=== PATIENT | male | born 1960 | race Caucasian/White ===

== ENCOUNTER 2021-12-20 10:39 | Emergency (ER) | payer MEDICARE, MEDICAID, SELFPAY ==
--- NOTE | 2021-12-20 | ECG_ITS ---
Test Reason : DIZZINESS Blood Pressure : / mmHG Vent. Rate : 082 BPM Atrial Rate : 082 BPM P-R Int : 154 ms QRS Dur : 120 ms QT Int : 386 ms P-R-T Axes : 039 047 -06 degrees QTc Int : 450 ms Normal sinus rhythm Possible Left atrial enlargement Left ventricular hypertrophy with QRS widening ( [employer] product ) Inferior infarct (cited on or before 20-DEC-2021) Abnormal ECG When compared with ECG of 20-DEC-2021 12:50, Aberrant conduction is no longer Present Referred By: Koffi Pichardo Electronically Signed By:HERNAN GARCIA MD
--- NOTE | ~2021-12-20 | XR_ITS ---
EXAMINATION: XR CHEST CLINICAL INFORMATION: Weakness COMPARISON: None TECHNIQUE: 2 views of the chest were obtained. FINDINGS: No significant abnormality is noted involving the heart, lungs, mediastinum, bony thorax or soft tissues. XR/XR chest 2V IMPRESSION: Unremarkable examination.
[2021-12-20 11:01] VITALS: BP 144/72; BP 152/75; PULSE 95; PULSE 96; RESP 16; TEMP 36.9; O2SAT 97; BMI 26.2
--- NOTE | 2021-12-20 11:16 | ED.GENADULT ---
HPI - General Adult General Chief complaint: Dizziness <DEBBIE Eduardo - Last Filed: 12/20/21 14:41> Stated complaint: general weakness after covid vaccine yesterday <DEBBIE Eduardo - Last Filed: 12/20/21 14:41> Time Seen by Provider: 12/20/21 10:47 <DEBBIE Eduardo Last Filed: 12/20/21 14:41> Source: patient and EMS <DEBBIE Eduardo Last Filed: 12/20/21 14:41> Mode of arrival: EMS <DEBBIE Eduardo Last Filed: 12/20/21 14:41> Limitations: no limitations <DEBBIE Eduardo Last Filed: 12/20/21 14:41> History of Present Illness HPI narrative: Patient is a 61 year old male presenting to the emergency department today with generalized weakness and housing concerns. Patient states that he has some generalized weakness and is concerned about where he is going to be living. Patient denies any dizziness, lightheadedness, abdominal pain, nausea, vomiting, fever, chills, blurry vision, double vision, loss of vision, chest pain, difficulty breathing, shortness of breath, back pain, night sweats, pain with urination, increased urinary frequency, increased urinary urgency, blood in his urine or stool, syncope or a near syncopal episode, recent trauma or falls, bowel incontinence, bladder incontinence, bowel retention, bladder retention, or any other complaints at this time. <DEBBIE Eduardo - Last Filed: 12/20/21 14:41> Onset (ago): hour(s) <DEBBIE Eduardo - Last Filed: 12/20/21 14:41> Relieving factors: none <DEBBIE Eduardo Last Filed: 12/20/21 14:41> Exacerbating factors: none <DEBBIE Eduardo Last Filed: 12/20/21 14:41> Associated symptoms: denies other symptoms <DEBBIE Eduardo - Last Filed: 12/20/21 14:41> Treatments prior to arrival: none <DEBBIE Eduardo Last Filed: 12/20/21 14:41> Related Data Allergies/adverse reactions: Allergies Allergy/AdvReac Type Severity Reaction Status Date / Time lamotrigine [From Lamictal] Allergy Shortness Verified 12/20/21 10:58 of Breath risperidone [From Risperdal] Allergy Shortness Verified 12/20/21 10:58 of Breath haloperidol [From Haldol] AdvReac Unknown Verified 12/20/21 10:58 <DEBBIE Eduardo Last Filed: 12/20/21 14:41> Review of Systems Constitutional: Constitutional: Reports no additional constitutional complaints, Denies chills, Denies fever(s), Denies night sweats and Reports weakness <DEBBIE Eduardo Last Filed: 12/20/21 14:41> Eyes: Eyes: Reports no additional eye complaints, Denies blurry vision, Denies change in vision, Denies diplopia, Denies eye discharge, Denies loss of vision and Denies eye pain <DEBBIE Eduardo Last Filed: 12/20/21 14:41> ENT: Denies dizziness <DEBBIE Eduardo Last Filed: 12/20/21 14:41> Cardiovascular: Cardiovascular: Reports no additional cardiovascular complaints, Denies chest pain, Denies lightheadedness, Denies Loss of Consciousness and Denies dyspnea <DEBBIE Eduardo Last Filed: 12/20/21 14:41> Respiratory: Respiratory: Reports no additional respiratory complaints and Denies dyspnea <DEBBIE Eduardo Last Filed: 12/20/21 14:41> Gastrointestinal: Gastrointestinal: Reports no additional gastrointestinal complaints, Denies abdominal pain, Denies melena, Denies hematochezia, Denies change in bowel habits and Denies change in stool character <DEBBIE Eduardo Last Filed: 12/20/21 14:41> Genitourinary: Genitourinary: Reports no additional male genitourinary complaints, Denies hematuria, Denies oliguria, Denies difficulty urinating, Denies dysuria, Denies urinary frequency, Denies urinary hesitancy, Denies urinary incontinence and Denies urinary urgency <DEBBIE Eduardo Last Filed: 12/20/21 14:41> Musculoskeletal: Musculoskeletal: Reports no additional musculoskeletal complaints, Denies numbness and Denies tingling <DEBBIE Eduardo Last Filed: 12/20/21 14:41> Neurologic: Denies dizziness, Denies loss of vision, Denies numbness, Denies tingling and Reports weakness <DEBBIE Edaurdo - Last Filed: 12/20/21 14:41> Psychiatric: Psychiatric: Reports no additional psychiatric complaints <DEBBIE Eduardo - Last Filed: 12/20/21 14:41> Endocrine: Endocrine: Reports no additional endocrine complaints <DEBBIE Eduardo - Last Filed: 12/20/21 14:41> Hematologic/Lymphatic: Hematologic/Lymphatic: Reports no additional hematologic/lymphatic complaints <DEBBIE Eduardo - Last Filed: 12/20/21 14:41> Allergic/Immunologic: Allergic/Immunologic: Reports no additional allergic/immunologic complaints <DEBBIE Eduardo - Last Filed: 12/20/21 14:41> PMF Past Medical History Attestation statement: The following information was validated with the patient. <DEBBIE Eduardo - Last Filed: 12/20/21 14:41> Source: old records reviewed <DEBBIE Eduardo - Last Filed: 12/20/21 14:41> Medical History: Medical History Neuropathy <DEBBIE Eduardo - Last Filed: 12/20/21 14:41> Surgical History: Surgical History H/O varicose vein ligation <DEBBIE Eduardo - Last Filed: 12/20/21 14:41> Social History Social History: Social History Advance Directives: No Advance Directives Information Provided: No <DEBBIE Eduardo - Last Filed: 12/20/21 14:41> Physical Exam ED Vital Signs: Vital Signs - 24 hr 12/20/21 11:01 12/20/21 13:00 Temperature 98.5 F 98.3 F Pulse Rate 96 81 Respiratory Rate 16 16 Blood Pressure 152/75 H 142/77 H Pulse Oximetry 97 96 BMI result Body Mass Index 26.2 <DEBBIE Eduardo - Last Filed: 12/20/21 14:41> Const General: cooperative, no acute distress, alert and awake <Hailey Victor Hugo MS - Last Filed: 12/20/21 14:41> Nutritional Appearance: well nourished <Hailey Diazblair MS - Last Filed: 12/20/21 14:41> Orientation/consciousness: patient oriented x3 <Hailey Diazblair MS - Last Filed: 12/20/21 14:41> Limitations: no limitations <Hailey Victor Hugo MS - Last Filed: 12/20/21 14:41> HENMT Head: Yes normal to inspection and Yes atraumatic <Hailey Diazblair MS - Last Filed: 12/20/21 14:41> Ears: hearing grossly normal bilaterally and external ears normal <Hailey Victor Hugo MS - Last Filed: 12/20/21 14:41> General nose exam: Normal external nose present, no nasal discharge noted and no epistaxis <Hailey Diazblair MS - Last Filed: 12/20/21 14:41> Face and sinus: Yes normal facial exam, No abrasion and No laceration <Hailey Victor Hugo MS - Last Filed: 12/20/21 14:41> Mouth: Normal oral and palatal mucosa present, no drooling and no muffled voice <Hailey Diazblair MS - Last Filed: 12/20/21 14:41> Eyes General: appearance normal, both eyes and all related structures <Hailey Diazblair MS - Last Filed: 12/20/21 14:41> Periorbital: periorbital findings normal <Hailey Victor Hugo MS - Last Filed: 12/20/21 14:41> Eyelids: Yes eyelids normal <Hailey Diazblair MS - Last Filed: 12/20/21 14:41> Conjunctivae: conjunctivae normal <Hailey Victor Hugo MS - Last Filed: 12/20/21 14:41> Pupils: Equal, round and reactive pupils present <Hailey Victor Hugo MS - Last Filed: 12/20/21 14:41> EOM: EOMs intact bilaterally <Hailey Victor Hugo MS - Last Filed: 12/20/21 14:41> Neck Neck: Yes normal visual inspection, Yes full ROM and Yes no lymphadenopathy <Hailey Gay MS - Last Filed: 12/20/21 14:41> Chest Chest palpation & inspection: normal inspection of the chest <Hailey Gay PA - Last Filed: 12/20/21 14:41> Resp Effort & Inspection: normal respiratory effort and able to speak in complete sentences <Hailey Gay PA - Last Filed: 12/20/21 14:41> Auscultation: clear to auscultation bilaterally <Hailey Gay PA - Last Filed: 12/20/21 14:41> Cardio Rate: regular rate <Hailey Gay PA - Last Filed: 12/20/21 14:41> Rhythm: regular rhythm <Hailey Gay PA - Last Filed: 12/20/21 14:41> GI Inspection: Yes normal to inspection <Hailey Gay DEBBIE - Last Filed: 12/20/21 14:41> Neuro General: patient oriented x3 and moves all extremities <Hailey Gay PA - Last Filed: 12/20/21 14:41> Cranial nerves: Yes Equal, round and reactive pupils present <Hailey Gay PA - Last Filed: 12/20/21 14:41> Cognition (Neuro): normal cognition <Hailey Gay PA - Last Filed: 12/20/21 14:41> Motor exam (neuro): 5/5 motor strength present throughout <Hailey Gay PA - Last Filed: 12/20/21 14:41> Sensory Exam: Normal double simultaneous stimulation for sensation <Hailey Gay PA - Last Filed: 12/20/21 14:41> Coordination: [id number] test normal <Hailey Gay PA - Last Filed: 12/20/21 14:41> Extrem General: Yes normal to inspection, Yes full ROM and Yes capillary refill normal <Hailey Gay PA - Last Filed: 12/20/21 14:41> Psych Appearance: grossly normal <Hailey Gay DEBBIE - Last Filed: 12/20/21 14:41> Mental Status: mental status grossly normal <Hailey Gya PA - Last Filed: 12/20/21 14:41> Affect: normal affect <Hailey Gay PA - Last Filed: 12/20/21 14:41> Attitude: cooperative <Hailey Gay PA - Last Filed: 12/20/21 14:41> Thought process: Normal thought process present <DEBBIE Eduardo Last Filed: 12/20/21 14:41> Thought content: Normal thought content present <DEBBIE Eduardo Last Filed: 12/20/21 14:41> Insight: Good insight present (Psych) <DEBBIE Eduardo Last Filed: 12/20/21 14:41> Medical Decision Making MDM Narrative Medical decision making narrative: Patient is a 61 year old male presenting to the emergency department today with generalized weakness and unsure of housing. Patient's physical exam was unremarkable. Patient's blood work was unremarkable. Patient's EKG was unremarkable. Patient's chest x-ray showed no acute process. I explained my physical exam findings as well as all test results to the patient. I answered all questions asked by the patient. Patient ate 3 sandwiches while awaiting a [facility]N consult and afterwards, he decided that he would rather leave. Patient denies any SI or HI. I stressed the importance of the patient taking his medication as prescribed. I stressed the importance of the patient following up with his primary care provider. I stressed the importance of the patient returning to the emergency department immediately if his symptoms were to worsen or if he were to develop any dizziness, shortness of breath, difficulty breathing, chest pain, blurry vision, loss of vision, nausea, vomiting, abdominal pain, fever, chills, back pain, or any other complaints. Patient verbalized agreement and understanding with this treatment plan and discharge. <DEBBIE Eduardo - Last Filed: 12/20/21 14:41> Differential Diagnosis Differential Diagnosis: weakness, malingering, homelessness <DEBBIE Eduardo Last Filed: 12/20/21 14:41> Medical Records Medical records reviewed: Yes I reviewed the patient's medical records. <DEBBIE Eduardo Last Filed: 12/20/21 14:41> Lab Data Lab results reviewed: Yes I reviewed the patient's lab results. <DEBBIE Eduardo Last Filed: 12/20/21 14:41> Result diagrams: : 12/20/21 13:06 12/20/21 13:06 <DEBBIE Eduardo Last Filed: 12/20/21 14:41> Labs: Lab Results 12/20/21 12/20/21 Range/Units 13:06 13:06 WBC 4.9 (4.8-10.8) X10*3/uL RBC 4.82 (4.60-5.80) X10*6/uL Hgb 14.9 (14.0-18.0) g/dl Hct 44.5 (42.0-52.0) % MCV 92.3 (80.0-98.0) fL MCH 30.9 (27.0-33.0) pg MCHC 33.5 (31.0-36.0) g/dl RDW 13.2 (11.0-16.0) % Plt Count 137 L (160-400) X10*3/uL MPV 9.3 L (9.4-12.4) fL Immature Gran % (Auto) 0.2 (0.0-0.4) % Neut % (Auto) 83.7 H (45-73) % Lymph % (Auto) 9.6 L (20-40) % Roosevelt % (Auto) 5.9 (2-11) % Eos % (Auto) 0.4 (0-4) % Baso % (Auto) 0.2 (0-2) % Lymph # (Auto) 0.5 L (1.2-4.9) X10*3/uL Roosevelt # (Auto) 0.3 (0.1-1.2) X10*3/uL Eos # (Auto) 0.0 (0.0-0.4) X10*3/uL Baso # (Auto) 0.0 (0.0-0.2) X10*3/uL Abs Immat Gran (auto) 0.01 (0.00-0.03) X10*3/uL Absolute Neuts (auto) 4.1 (2.0-8.3) x10*3/uL Absolute Nucleated RBC 0.000 (0.0-0.012) X10*3/uL Nucleated RBC % (auto) 0.0 (0.0-0.2) /100WBC Sodium 135 (135-145) mmol/L Potassium 4.2 (3.3-5.1) mmol/L Chloride 100 (96-108) mmol/L Carbon Dioxide 28 (22-29) mmol/L Anion Gap 11 L (12-20) BUN 12 (9-16) mg/dL Creatinine 0.85 (0.5-1.4) mg/dL Estim Creat Clear Calc 110.4 Estimated GFR > 60 Random Glucose 141 H (60-115) mg/dL Calcium 8.9 (8.4-10.2) mg/dL Total Bilirubin 0.6 (0.0-1.0) mg/dL AST 11 (5-37) U/L ALT 10 (0-40) U/L Alkaline Phosphatase 61 (39-117) U/L Total Protein 6.1 L (6.5-8.0) g/dL Albumin 4.0 (3.5-5.0) g/dL <DEBBIE Eduardo - Last Filed: 12/20/21 14:41> Imaging Data Chest x-ray: Attestation: I personally reviewed and interpreted this imaging study as follows: <DEBBIE Eduardo - Last Filed: 12/20/21 14:41> My impression: No acute process. <DEBBIE Eduardo - Last Filed: 12/20/21 14:41> Radiologist's impression: EXAMINATION: XR CHEST CLINICAL INFORMATION: Weakness COMPARISON: None TECHNIQUE: 2 views of the chest were obtained. FINDINGS: No significant abnormality is noted involving the heart, lungs, mediastinum, bony thorax or soft tissues. XR/XR chest 2V IMPRESSION: Unremarkable examination. Dictated By: Ross Lucero MD Signed By: Electronically signed by Ross Lucero MD 12/20/21 1158 <DEBBIE Eduardo - Last Filed: 12/20/21 14:41> ECG Data Attestation: I personally reviewed and interpreted this ECG as follows: <DEBBIE Eduardo - Last Filed: 12/20/21 14:41> Interpretation: Vent. Rate: 084 BPM ? ? Atrial Rate: 084 BPM P-R Int: 160 ms? QRS Dur: 116 ms QT Int: 370 ms ? ? ? P-R-T Axes: 057 051 -25 degrees QTc Int: 437 ms ? Sinus rhythm with Premature atrial complexes with Aberrant conduction Inferior infarct , age undetermined Abnormal ECG No previous ECGs available <DEBBIE Eduardo - Last Filed: 12/20/21 14:41> Discharge Plan Discharge Clinical Impression: Weakness <DEBBIE Eduardo - Last Filed: 12/20/21 14:41> Patient Disposition: Home, Self-Care <DEBBIE Eduardo - Last Filed: 12/20/21 14:41> Instructions: Weakness (ED) <DEBBIE Eduardo - Last Filed: 12/20/21 14:41> Additional Instructions: Follow up with your primary care provider. Return to the emergency department immediately if your symptoms worsen or if you develop any dizziness, shortness of breath, difficulty breathing, chest pain, blurry vision, loss of vision, nausea, vomiting, abdominal pain, fever, chills, back pain, or any other complaints. <DEBBIE Eduardo - Last Filed: 12/20/21 14:41> Interventions: ED Discharge Assessment Last Done: 12/20/21 14:30 <DEBBIE Eduardo - Last Filed: 12/20/21 14:41> Discharge Date/Time: 12/20/21 14:30 <DEBBIE Eduardo - Last Filed: 12/20/21 14:41> Print Language: Moroccan <DEBBIE Eduardo - Last Filed: 12/20/21 14:41>
--- NOTE | 2021-12-20 11:23 | ECG_ITS ---
Test Reason : DIZZINESS Blood Pressure : / mmHG Vent. Rate : 084 BPM Atrial Rate : 084 BPM P-R Int : 160 ms QRS Dur : 116 ms QT Int : 370 ms P-R-T Axes : 057 051 -25 degrees QTc Int : 437 ms Sinus rhythm with Premature atrial complexes with Aberrant conduction Inferior infarct , age undetermined Abnormal ECG No previous ECGs available Referred By: Hailey Gay Electronically Signed By:HERNAN GARCIA MD
[2021-12-20 13:00] VITALS: BP 142/77; PULSE 81; RESP 16; TEMP 36.8; O2SAT 96
[2021-12-20 13:10] LABS: MANUAL DIFF FLAG NO
[2021-12-20 13:21] LABS: Basophils Percent Auto 0.2 % (0-2); Eosinophils Percent Auto 0.4 % (0-4); Hematocrit 44.5 % (42.0-52.0); Hemoglobin 14.9 g/dl (14.0-18.0); Imm Gran Abs Auto 0.01 X10*3/uL (0.00-0.03); Imm Gran Pct Auto 0.2 % (0.0-0.4); Lymphocytes Absolute Auto 0.5 X10*3/uL (1.2-4.9); Lymphocytes Percent Auto 9.6 % (20-40); Mean Corpuscular HGB Conc 33.5 g/dl (31.0-36.0); Mean Corpuscular Hemoglobin 30.9 pg (27.0-33.0); Mean Corpuscular Volume 92.3 fL (80.0-98.0); Mean Platelet Volume 9.3 fL (9.4-12.4); Monocytes Absolute Auto 0.3 X10*3/uL (0.1-1.2); Monocytes Percent Auto 5.9 % (2-11); Neutrophils Absolute Auto 4.1 x10*3/uL (2.0-8.3); Neutrophils Percent Auto 83.7 % (45-73); Platelet Count 137 X10*3/uL (160-400); Red Blood Count 4.82 X10*6/uL (4.60-5.80); Red Cell Distribution Width 13.2 % (11.0-16.0); White Blood Count 4.9 X10*3/uL (4.8-10.8)
[2021-12-20 13:32] LABS: Alanine Aminotransferase 10 U/L (0-40); Alkaline Phosphatase 61 U/L (39-117); Anion Gap 11 (12-20); Aspartate Amino Transferase 11 U/L (5-37); Bilirubin Total 0.6 mg/dL (0.0-1.0); Blood Urea Nitrogen 12 mg/dL (9-16); Calcium 8.9 mg/dL (8.4-10.2); Carbon Dioxide 28 mmol/L (22-29); Chloride 100 mmol/L (96-108); Creatinine Clr Calc Pharmacy 110.4; Estimated Glomerular Filt Rate > 60; Glucose Random 141 mg/dL (60-115); Potassium 4.2 mmol/L (3.3-5.1); Sodium 135 mmol/L (135-145); Total Protein 6.1 g/dL (6.5-8.0)
== END 2021-12-20 14:30 | disposition home or self-care (01) ==
PROVIDERS: Physician Assistant Medical; Emergency Provider Emergency Medicine
DX: R53.1 Weakness (principal); R94.31 Abnormal electrocardiogram [ECG] [EKG]; Z59.02 Unsheltered homelessness
CPT/HCPCS: 36415; 71046; 80053; 85025; 93005; 99284